=== PATIENT | female | born 1930 | race Caucasian/White ===

== ENCOUNTER 2019-04-26 08:24 | Emergency (ER) | payer MEDICARE, OTHER ==
[~2019-04-26] VITALS: Ht 157.5 cm; Wt 66.7 kg
[~2019-04-26 08:24] MED LIST: ACET-2047 PO; ALPR0.5T PO; APIX5TAB ORAL; ASPI-781 PO; ASPI-817 PO; ATOR20TA38 PO; BISA5TAB6 PO; CANA100T PO; CHOL50009 PO; CLOP75TA27 PO; CYCL1DRO BOTH EYES; ESOM40CA PO; FERR-55 PO; FURO20TA3 PO; GABA300C16 PO; GLIM2TAB PO; GLIM2TAB47 PO; ISOS120T15 PO; ISOS60TA PO; LEVE250T5 PO; LINA1TAB7 PO; MELA5TAB4 PO; METF850T13 PO; METO-319 PO; METO-335 PO; NITR0.4T39; NITR0.4T39 SL; QUET25TA PO; RANO500T2 PO; SERT50TA6 PO; SITA100T11 PO
[2019-04-26 08:39] VITALS: Ht 157.5 cm; Wt 66.7 kg
[2019-04-26] MEDS ORDERED: ACETAMINOPHEN 500 MG TAB PO STA (08:45)
[2019-04-26] MEDS ORDERED: SOD CHLORIDE 0.9% 1,000 ML IV STA (09:23)
[2019-04-26 12:20] VITALS: BP 122/78; PULSE 84; RESP 20
== END 2019-04-26 12:29 | disposition home or self-care (01) ==
LOC: E/R 08:24
DX: N28.9 Disorder of kidney and ureter, unspecified (principal); D64.9 Anemia, unspecified; I10 Essential (primary) hypertension; I25.10 Atherosclerotic heart disease of native coronary artery without angina pectoris; E11.9 Type 2 diabetes mellitus without complications; R41.82 Altered mental status, unspecified; Z79.84 Long term (current) use of oral hypoglycemic drugs; Z86.73 Personal history of transient ischemic attack (TIA), and cerebral infarction without residual deficits; Z95.5 Presence of coronary angioplasty implant and graft
CPT/HCPCS: 36415; 70450; 71045; 80053; 81001; 82962; 85025; 87086; 93005; 99285; J7030; 81003